=== PATIENT | male | born 1970 | race Caucasian/White ===

== ENCOUNTER 2018-12-09 16:59 | Emergency (ER) | payer BC, OTHER ==
[~2018-12-09] VITALS: Ht 180.3 cm; Wt 74.8 kg
[2018-12-09] MEDS ORDERED: LIDOCAINE/EPI 2% 1:100,00 (XYLOCAINE) 20 ML VIAL ONE (17:03)
--- NOTE | 2018-12-09 17:33 | ED Upper Extremity ---
General Chief Complaint: Laceration Stated Complaint: LT HAND LAC Source: patient History of Present Illness Date Seen by Provider: Dec 09, 2018 Time Seen by Provider: 17:28 Initial Comments 48-year-old right-handed male presents with full-thickness partial laceration around left index finger proximal MCP joint. Joint capsule was not involved. Patient was cutting calves when he was kicked and cut himself with a sharp knife. Tetanus is update. Injury occurred just prior to arrival. No other symptoms or complaints. Onset: just prior to arrival Severity: moderate Method of Injury: incised Modifying Factors: Improves With Other Associated Symptoms: no motor weakness or loss of function. Allergies and Home Medications Allergies Coded Allergies: No Known Drug Allergies (Unverified , 12/09/18) Patient Home Medication List Home Medication List Reviewed: Yes Review of Systems Constitutional: no symptoms reported EENTM: no symptoms reported Respiratory: see HPI Cardiovascular: no symptoms reported Gastrointestinal: no symptoms reported Genitourinary: no symptoms reported Musculoskeletal: no symptoms reported Skin: no symptoms reported Psychiatric/Neurological: No Symptoms Reported All Other Systems Reviewed Negative Unless Noted: Yes Past Whbbvyc-[facility]-Wsyssw Hx Past Med/Social Hx: Reviewed Nursing Past Med/Soc Hx Patient Social History Alcohol Use: Occasionally Uses Recreational Drug Use: No Smoking Status: Never a Smoker 2nd Hand Smoke Exposure: No Recent Foreign Travel: No Contact w/Someone Who Travel: No Physical Abuse: No Sexual Abuse: No Mistreated: No Physical Exam Vital Signs Capillary Refill : Height, Weight, BMI Height: '" Weight: lbs. oz. kg; BMI Method: General Appearance: WD/WN HEENT: PERRL/EOMI Hand: Left, laceration (2 cm full thickness cirucmferential laceration of left index finger just above MCP joint, bleeding controlled, no decreased structures involved. Motor function and sensation intact.) Procedures/Interventions Wound Location: Upper Extremities Other Wound Location 2 cm Wound Explored: copious irrigation with tap water in ED Betadine Prep?: No Suture: Ethlion, Prolene Suture Size: 4-0 Number of Sutures: 11 Layer Closure?: 1 Number Deep Layer Sutures: 0 Sterile Dressing Applied?: Yes Progress Wound cleansed and closed with good approximation of edges. Progress/Results/Core Measures Results/Orders My Orders Orders - TRENTON CHERRY DO Lidocaine/Epi 2% 1:100,000 (Xylocaine/Ep (12/09/18 17:03) Departure Impression Primary Impression: Laceration of left index finger Disposition: 01 HOME, SELF-CARE Condition: Stable Departure-Patient Inst. Decision time for Depature: 17:35 Referrals: NO,LOCAL PHYSICIAN (PCP) Primary Care Physician Patient Instructions: Laceration Repair With Stitches (DC) Add. Discharge Instructions: Keep laceration wound clean, covered and dry. Take ibuprofen for pain as needed and antibiotics the next 5 days. Sutures should be removed in the next 10-12 days. Return to the ED if signs of infection. All Dscharge instructions reviewed with patient and/or family. Voiced understanding. Scripts Cephalexin (Keflex) 500 Mg Capsule 500 MG PO TID, #15 CAP Prov: TRENTON CHERRY DO 12/09/18 TRENTON CHERRY DO Dec 09, 2018 17:33
[2018-12-09] MEDS ORDERED: CEPH-507 PO (17:37)
[2018-12-09 17:39] VITALS: BP 112/76
[2018-12-09] MEDS ORDERED: LIDOCAINE/EPI 2% 1:100,00 (XYLOCAINE) 20 ML VIAL INJ ONE (17:45)
== END 2018-12-09 17:45 | disposition home or self-care (01) ==
LOC: ER FS 17:04
DX: S61.211A Laceration without foreign body of left index finger without damage to nail, initial encounter (principal); W26.0XXA Contact with knife, initial encounter
CPT/HCPCS: 12002